=== PATIENT | female | born 1960 | race Caucasian/White ===

== ENCOUNTER 2018-07-31 22:21 | Inpatient (IN) ==
[2018-07-31] MEDS ORDERED: DUONEB 0.5 MG/3 MG ONE (22:34)
[2018-07-31] MEDS ORDERED: NS 1000 ML 1,000 ML ONE (22:34)
[2018-07-31] MEDS ORDERED: NS 1000 ML 1,000 ML IV ONE (22:40)
[2018-07-31 22:46] LABS: ABG BASE EXCESS -2.3 mmol/L (-2.0-2.0); ABG HCO3 25.6 mmol/L (22-26)
[2018-07-31 22:48] LABS: BASOPHILS # (AUTO) 0.1 X10^3/uL (0.0-0.1); BASOPHILS % (AUTO) 0.3 % (0.2-1.0); HEMATOCRIT 41.4 % (42.0-54.0); HEMOGLOBIN 14.1 g/dL (13.5-18.0); LYMPHOCYTES # (AUTO) 1.5 X10^3/uL (1.3-2.9); LYMPHOCYTES % (AUTO) 5.8 % (21.0-51.0); MEAN CORPUSCULAR HEMOGLOBIN 32.9 pg (27.0-34.0); MEAN CORPUSCULAR HGB CONC 34.2 g/dL (33.0-35.0); MEAN CORPUSCULAR VOLUME 96.3 fL (80.0-100.0); MEAN PLATELET VOLUME 6.7 fL (7.4-11.0); MONOCYTES # (AUTO) 0.8 x10^3/uL (0.3-0.8); MONOCYTES % (AUTO) 2.9 % (0.0-13.0); NEUTROPHILS # (AUTO) 24.1 x10^3/uL (2.2-4.8); PLATELET COUNT 317 X10^3/uL (150.0-450.0); WHITE BLOOD COUNT 26.4 X10^3/uL (3.6-10.0)
[2018-07-31 23:00] LABS: ALANINE AMINOTRANSFERASE 36 Units/L (12-78); ALBUMIN 3.5 g/dL (3.4-5.0); ALKALINE PHOSPHATASE 74 Units/L (46-116); ASPARTATE AMINO TRANSFERASE 104 Units/L (15-37); BLOOD UREA NITROGEN 28 mg/dL (7-18); CALCIUM 9.4 mg/dL (8.5-10.1); CARBON DIOXIDE 26.2 mmol/L (21-32); CHLORIDE 95 mmol/L (98-107); COR NA(FOR HYPERGLY) 135 mmol/L (136-145); CREATININE 1.88 mg/dL (0.70-1.30); SODIUM 134 mmol/L (136-145); TOTAL PROTEIN 6.9 g/dL (6.4-8.2); eGFR NON BLACK RACES 39 (>60)
[2018-07-31 23:03] LABS: BAND NEUTROPHILS % 35 % (0-10); PLATELET MORPHOLOGY COMMENT NORMAL (NORMAL)
[2018-07-31] MEDS ORDERED: DUONEB 0.5 MG/3 MG NEB ONE (23:10)
--- NOTE | 2018-07-31 23:18 | RAD ---
Chest single frontal view comparison study is 08/11/2016 and 08/13/2016 Clinical indication: Shortness of breath Findings: When compared to the most recent exam performed earlier 2 years prior, again demonstrated is a pattern of coarse interstitial reticulation with basilar predominance indicative of pulmonary fibrosis. There is mild elevation of the right diaphragm. Interstitial airspace disease is increased and overall volume in the interim especially within the left lower lobe. While this may represent progression of pulmonary fibrosis, superimposed infiltrate affiliated with pneumonia cannot be excluded. This requires direct clinical correlation. The pleural spaces are generally clear. The heart size is normal with accentuation of the main pulmonary artery which may indicate pulmonary artery hypertension. A spinal stimulator wires in place Impression: A background of diffuse interstitial fibrosis with basilar predominance. Superimposed increased of interstitial density in the left lower lobe is observed in the interim, representing either progression of fibrosis or superimposed pneumonia. Clinical correlation is necessary. Reported By:
[2018-07-31] MEDS ORDERED: ROCEPHIN VIAL 1 GRAM IVP ONE (23:26)
[2018-07-31] MEDS ORDERED: SOLU-Medrol 125 MG VIAL IVP ONE (23:26)
--- NOTE | 2018-07-31 23:28 | DR.SOBA ---
HPI Time Seen Time Seen by Provider: 07/31/18 22:54 Primary Care Physician Primary Care Physician: SANDEEP HPI Comment HPI Comment: PATIENT ON HOME O2 AT NIGHT. SHE HAVE HIDTORY OF AFIB, RA AND LUPUS. WORSE SUDDENLY TONIGHT. Complaints Chief Complaint Doctors Comments: PATIENT WITH COPD AND PULMONAY FIBROSIS PRESENTS CYANOTIC WITH SEVERE SOB AND OXYGEN DESATURATION. PATIENT WAS RECENTLY IN THE HOSPITAL FOR SIMILAR PRESENTATION AND HAD PPNEUMONIA AT THAT TIME. DENIES FEVER. HAVE CHEST TIGHTNESS. Chief Complaint:: SUDDEN ONSET OF SHORTNESS OF BREATH, SATS DECREASED. Reviewed Nurses Notes Reviewed: Yes Source History Provided: Patient Mode of Arrival Mode of Arrival: Ambulatory Timing Onset of Chief Complaint: 07/31/18 Context Onset:: At Rest and With Light Exertion PE Risk Factors:: None History of:: COPD Currently on:: Inhaled Bronchodilators Prehospital Care:: Inhaled B2 Modifying Factors Worsens:: Exertion and Lying Flat Improves:: Rest and Sitting Up Associated Signs and Symptoms Associated Signs and Symptoms: Wheeze and Cough If Chest Pain Quality: Pleuritic (TIGHTNESS.) Location: Right Upper Chest, Right Lower Chest, Left Upper Chest and Left Lower Chest If Cough Cough: Productive and Yellow PMH PMH Past Medical History: Yes Past Medical History: Arthritis and COPD Past Medical History Comment: ATRIAL FIBRILLATION HOME OXYGEN @ 2-3L NC @HS LUPUS CHRONIC BACK PAIN, DENGENERATIVE DISC DISEASE ATRIAL FLUTTER EMPHYSEMA RHUEMATOID ARTHRIS Past Surgical History: Yes Surgical History: Hysterectomy, Ortho Surgery and Other Past Surgical History Comment: BACK SURGERIES (5) Family History History of Family Medical Conditions: Yes Family Medical History: [place] and Hypertension Social History Type of Tobacco Use: Cigarettes Alcohol Use: None Do you use any recreational Drugs:: No Lives With: Spouse Lives Where: Home infectious screening In the last 2 months have you had wt loss of >10#?: NO Have you had fever, night sweats or hemotysis?: No Have you traveled outside the country in the last 6 months?: Yes Details about traveling: 2017-Jun Isolation: Standard ROS Review of Systems Constitutional: Diaphoresis, Weakness and Fatigue; negative Chills and Fever Eyes: No Symptoms Reported ENTM: Nose Congestion Respiratoy: Productive Cough, Orthopnea, Short of Breath and Wheezing Cardiovascular: Chest Pain Gastrointestinal/Abdominal: No Symptoms Reported Genitourinary: No Symptoms Reported Neurological: Headache, Weakness and Dizziness Musculoskeletal: Back Pain, Muscle Pain, Hip, Leg, Knee, Ankle and Foot Integumentary: Change in Color (PERIPHERAL CYANOSIS.) and Other (PERIPHERAL CYANOSIS.) Hematologic/Lymphatic: Easy Bleeding and Easy Bruising Endocrine: Excessive Sweating, Flushing and Intolerance to Heat Psychiatric: Anxiety and Depression; negative Other All Other Systems: Reviewed and Negative PE Vital Signs Vitals: Temperature 97.1 F Pulse Rate [Left] 89 Pulse Rate 55 Respiratory Rate 22 Blood Pressure [Left Arm] 91/50 Blood Pressure [Right Arm] 140/76 Blood Pressure 92/60 O2 Sat by Pulse Oximetry 96 General Limitations: No Limitations General Appearance: Alert and In Distress Head Head Exam: Normal Inspection Eyes Eye exam: PERRL and EOMI; negative Scleral Icterus and Conjunctival Injection ENT ENT Exam: Normal External Ear Exam Neck Neck Exam: Trachea Midline; negative Tenderness, Meningismus and Lymphadenopathy Chest Chest Inspection: Symmetric Chest Wall Rise Respiratory Respiratory Exam: Respiratory Distress Respiratory Exam: Bilateral: Wheezing, Bilateral: Rhonchi and Bilateral: D ecreased Breath Sounds, Upper: Wheezing and Upper: Rhonchi and Lower: Wheezing, Lower: Rhonchi and Lower: Decreased Breath Sounds Cardiovascular Cardiovascular Exam: Regular Rate, Normal Rhythm and +S3 Abdominal Exam Abdominal Exam: Normal Bowel Sounds and Soft; negative Tenderness Extremities Extremities Exam: negative Joint Swelling and Calf Tenderness Back Back Exam: Paraspinal Tenderness Neurologic Neurological Exam: Alert, Oriented X3, CN II-XII Intact and Reflexes Normal; negative Motor Sensory Deficit Psychiatric Psychiatric Exam: Anxious MDM Additional Information Obtained Additional Information Obtained From: Old Records and Family Differential Diagnosis Differential Diagnosis: Bronchitis, CHF, COPD, Dysrhythmia, Hyponatremia, Mycardial Infarction, Pneumonia, Pneumothorax, Pulmonary embolism, Respiratory Failure, Sinusitis and URI COURSE Treatment Treatment: SEE ORDERS. NEB TREAMENT WITH IV SOLUMEDROL AND BI-PAP IN ED. Reevaluation 1st: Improved Education/Counseling Education/Counseling: Patient and Family Educated On: Diagnosis ROR Labs Reviewed Laboratory Results Reviewed?: Yes Result Diagrams: 07/31/18 22:41 07/31/18 22:41 Laboratory: 08/01/18 00:28 Sputum - Expectorated Sputum - Final WBC 26.4 X10^3/uL (3.6-10.0) H 07/31/18 22:41 RBC 4.30 X10^6/uL (4.7-6.0) L 07/31/18 22:41 Hgb 14.1 g/dL (13.5-18.0) 07/31/18 22:41 Hct 41.4 % (42.0-54.0) L 07/31/18 22:41 MCV 96.3 fL (80.0-100.0) 07/31/18 22:41 MCH 32.9 pg (27.0-34.0) 07/31/18 22:41 MCHC 34.2 g/dL (33.0-35.0) 07/31/18 22:41 RDW 15.0 % (11.6-16.5) 07/31/18 22:41 Plt Count 317 X10^3/uL (150.0-450.0) 07/31/18 22:41 Plt Count Comment Adequate (ADEQUATE) 07/31/18 22:41 MPV 6.7 fL (7.4-11.0) L 07/31/18 22:41 Neut % (Auto) 91.0 % (42.0-75.0) H 07/31/18 22:41 Lymph % (Auto) 5.8 % (21.0-51.0) L 07/31/18 22:41 [place] % (Auto) 2.9 % (0.0-13.0) 07/31/18 22:41 Eos % (Auto) 0.0 % (0.9-2.9) L 07/31/18 22:41 Baso % (Auto) 0.3 % (0.2-1.0) 07/31/18 22:41 Neut # (Auto) 24.1 x10^3/uL (2.2-4.8) H 07/31/18 22:41 Lymph # (Auto) 1.5 X10^3/uL (1.3-2.9) 07/31/18 22:41 Smith # (Auto) 0.8 x10^3/uL (0.3-0.8) 07/31/18 22:41 Eos # (Auto) 0.0 x10^3/uL (0.0-0.2) 07/31/18 22:41 Baso # (Auto) 0.1 X10^3/uL (0.0-0.1) 07/31/18 22:41 Absolute Nucleated RBC 0.0 /100WBC 07/31/18 22:41 Total Counted 100 07/31/18 22:41 Neutrophils % (Manual) 57 % (39-76) 07/31/18 22:41 Band Neutrophils % 35 % (0-10) H 07/31/18 22:41 Lymphocytes % (Manual) 5 % (13-43) L 07/31/18 22:41 Monocytes % (Manual) 3 % (4-9) L 07/31/18 22:41 Plt Morphology Comment Normal (NORMAL) 07/31/18 22:41 RBC Morphology Normal (NORMAL) 07/31/18 22:41 Sample Site Lbra 08/01/18 00:25 ABG pH 7.240 (7.35-7.45) L 08/01/18 00:25 ABG pCO2 61.0 mmHg (35.0-45.0) H* 08/01/18 00:25 ABG pO2 61.0 mmHg (80.0-100.0) L 08/01/18 00:25 ABG HCO3 26.1 mmol/L (22-26) H 08/01/18 00:25 ABG O2 Saturation 86.0 % (90-100) L 08/01/18 00:25 ABG Base Excess -2.3 mmol/L (-2.0-2.0) L 08/01/18 00:25 Surinder Test Na 08/01/18 00:25 A-a Gradient 219.0 mmHg 08/01/18 00:25 FiO2 50.0 08/01/18 00:25 Blood Gas Comments Lisa abg well-mtf 08/01/18 00:25 Sodium 134 mmol/L (136-145) L 07/31/18 22:41 Corrected Sodium 135 mmol/L (136-145) L 07/31/18 22:41 Potassium 4.0 mmol/L (3.5-5.1) 07/31/18 22:41 Chloride 95 mmol/L (98-107) L 07/31/18 22:41 Carbon Dioxide 26.2 mmol/L (21-32) 07/31/18 22:41 BUN 28 mg/dL (7-18) H 07/31/18 22:41 Creatinine 1.88 mg/dL (0.70-1.30) H 07/31/18 22:41 Est GFR (MDRD) Af Amer 48 (>60) L 07/31/18 22:41 Est GFR (MDRD) Non-Af 39 (>60) L 07/31/18 22:41 Glucose 129 mg/dL (65-99) H 07/31/18 22:41 Lactic Acid 1.0 mmol/L (0.4-2.0) 07/31/18 22:41 Calcium 9.4 mg/dL (8.5-10.1) 07/31/18 22:41 Corrected Calcium TNP 07/31/18 22:41 Total Bilirubin 0.50 mg/dL (0.2-1.0) 07/31/18 22:41 AST 104 Units/L (15-37) H 07/31/18 22:41 ALT 36 Units/L (12-78) 07/31/18 22:41 Alkaline Phosphatase 74 Units/L (46-116) 07/31/18 22:41 Creatine Kinase 1721 Units/L (39-308) H 07/31/18 22:41 CK-MB (CK-2) 25.8 ng/mL (0-4.0) H* 07/31/18 22:41 CK/CKMB % Calc 1.5 % (<4) 07/31/18 22:41 Troponin I 0.49 ng/mL (0-1.5) 07/31/18 22:41 C-Reactive Protein 167.10 mg/L (0-3.0) H 07/31/18 22:41 Total Protein 6.9 g/dL (6.4-8.2) 07/31/18 22:41 Albumin 3.5 g/dL (3.4-5.0) 07/31/18 22:41 Globulin 3.4 g/dL (2.5-4.5) 07/31/18 22:41 Albumin/Globulin Ratio 1.0 Ratio (1.1-2.1) L 07/31/18 22:41 XRAY XRAY Interpreted by: Radiologist XRAY Findings: REPORT DISCUSS WITH PATIENT. EKG Rate: 95 [place]: Normal Rhythm: NSR Block: None Hypertrophy: None ST: Normal
[2018-07-31 23:42] LABS: TROPONIN I 0.49 ng/mL (0-1.5)
[2018-07-31 23:43] LABS: CREATINE KINASE MB 25.8 ng/mL (0-4.0)
[2018-07-31 23:44] LABS: CKMB % 1.5 % (<4)
[2018-07-31] MEDS ORDERED: SOLU-Medrol 125 MG VIAL ONE (23:53)
[2018-07-31] MEDS ORDERED: ROCEPHIN VIAL 1 GRAM ONE (23:53)
[2018-08-01 00:38] LABS: ABG BASE EXCESS -2.3 mmol/L (-2.0-2.0); ABG HCO3 26.1 mmol/L (22-26)
[2018-08-01 02:34] LABS: TROPONIN I 0.39 ng/mL (0-1.5)
[2018-08-01 02:36] LABS: CKMB % 1.7 % (<4); CREATINE KINASE MB 21.4 ng/mL (0-4.0)
[2018-08-01 03:33] LABS: BILIRUBIN,URINE NEGATIVE (NEGATIVE); BLOOD/HEMOGLOBIN,URINE 1+ (NEGATIVE); GLUCOSE, URINE NEGATIVE (NEGATIVE); KETONES,URINE NEGATIVE (NEGATIVE); LEUKOCYTE ESTERASE ,URINE NEGATIVE (NEGATIVE); NITRITES,URINE NEGATIVE (NEGATIVE); PROTEIN,URINE 2+ (NEGATIVE); UROBILINOGEN,URINE NORMAL (NORMAL)
[2018-08-01 03:40] LABS: AMORPHOUS SEDIMENT,UR 2+ /HPF (NEGATIVE); APPEARANCE,URINE CLEAR (CLEAR); BACTERIA,URINE TRACE /HPF (NEGATIVE); CALCIUM OXALATE CRYSTALS,UR FEW /HPF (NEGATIVE); COLOR,URINE DARK YELLOW (YELLOW); HYALINE CASTS, URINE MANY /LPF (NEGATIVE); SQUAMOUS EPITHELIAL CELL,UR FEW /HPF (NEGATIVE)
[2018-08-01 03:44] VITALS: BMI 26.7
[2018-08-01] MEDS: NS 1000 ML 1,000 ML IV SCH ×2 (04:00→18:06)
[2018-08-01] MEDS ORDERED: NS 1000 ML 1,000 ML ONE (04:04)
[2018-08-01 05:55] LABS: BASOPHILS % (AUTO) 0.1 % (0.2-1.0); HEMATOCRIT 38.6 % (36.0-47.0); HEMOGLOBIN 13.1 g/dL (12.0-16.0); LYMPHOCYTES # (AUTO) 0.3 X10^3/uL (1.3-2.9); LYMPHOCYTES % (AUTO) 1.6 % (21.0-51.0); MEAN CORPUSCULAR HEMOGLOBIN 32.8 pg (27.0-34.0); MEAN CORPUSCULAR VOLUME 96.5 fL (80.0-100.0); MEAN PLATELET VOLUME 6.8 fL (7.4-11.0); MONOCYTES # (AUTO) 0.1 x10^3/uL (0.3-0.8); MONOCYTES % (AUTO) 0.3 % (0.0-13.0); NEUTROPHILS # (AUTO) 17.3 x10^3/uL (2.2-4.8); PLATELET COUNT 281 X10^3/uL (150.0-450.0); RED CELL DISTRIBUTION WIDTH 14.9 % (11.6-16.5)
[2018-08-01 05:56] LABS: ABG BASE EXCESS -1.5 mmol/L (-2.0-2.0)
[2018-08-01 06:08] LABS: ALANINE AMINOTRANSFERASE 32 Units/L (12-78); ALBUMIN 2.9 g/dL (3.4-5.0); ALKALINE PHOSPHATASE 63 Units/L (46-116); ASPARTATE AMINO TRANSFERASE 80 Units/L (15-37); BAND NEUTROPHILS % 37 % (0-10); BLOOD UREA NITROGEN 24 mg/dL (7-18); CALCIUM 8.7 mg/dL (8.5-10.1); CARBON DIOXIDE 24.9 mmol/L (21-32); CHLORIDE 101 mmol/L (98-107); CHOL/HDL RATIO 4.3 (0.0-5.0); CHOLESTEROL 150 mg/dL (0-200); COR CA(FOR HYPOALB) 9.6 mg/dL (8.5-10.1); COR NA(FOR HYPERGLY) 137 mmol/L (136-145); CREATININE 1.13 mg/dL (0.55-1.02); HDL CHOLESTEROL 35 mg/dL (40-60); PLATELET MORPHOLOGY COMMENT NORMAL (NORMAL); SODIUM 136 mmol/L (136-145); TOTAL PROTEIN 6.2 g/dL (6.4-8.2); TRIGLYCERIDES 125 mg/dL (0-150); WHITE BLOOD COUNT 17.6 X10^3/uL (3.6-10.0); eGFR NON BLACK RACES 53 (>60)
[2018-08-01 06:50] LABS: CKMB % 1.8 % (<4); TROPONIN I 0.33 ng/mL (0-1.5)
[2018-08-01 06:53] LABS: CREATINE KINASE MB 16.3 ng/mL (0-4.0)
--- NOTE | 2018-08-01 08:19 | DR.H&P ---
H&P - History & Physical for Day of: H&P Date: 08/01/18 - Chief Complaint Chief Complaint: SOB, COUGH, DECREASED OXYGEN SATURATIONS - History of Present Illness History of Present Illness: IS A 57 YEAR OLD PATIENT OF OURS WHO PRESENTED TO THE EMERGENCY ROOM WITH COMPLAINTS OF SHORTNESS OF BREATH AND DECREASED OXYGEN SATURATIONS. SHE REPORTS THAT SYMPTOMS STARTED SUDDENLY LAST NIGHT. SHE REPORTS A MEDICAL HISTORY OF COPD, PULMONARY FIBROSIS, A-FIB, RA, AND LUPUS. SHE REPORTS RECENTLY BEING HOSPITALIZED FOR SIMILAR PRESENTATION AND PNEUMONIA. SHE UTILIZES OXYGEN AT HOME AND INHALED BRONCHODILATORS. SHE STATES THAT LYING FLAT AND EXERTION MAKES SYMPTOMS WORSE. SHE ALSO REPORTS CHEST TIGHTNESS. ON EXAMINATION, SHE IS NOTED WITH A PRODUCTIVE COUGH AND SCATTERED WHEEZING. ON ARRIVAL, VITALS WERE 97.1-97-22-85%NC-92/60. LABS WERE OBTAINED. ABNORMAL LAB VALUES INCLUDE THE FOLLOWING: WBC 26.4, RBC 4.30, HCT 41.4, SODIUM 134, CHLORIDE 95, BUN 28, CREATININE 1.88, GLUCOSE 129, AST 104, CREATINE KINASE 1721, CK-MB 25.8, CRP 167.10. ABG REVEALED PH 7.260, PC02 57.0, P02 44.0, HC03 25.6, 02 SATURATION 72.0, BASE EXCESS -2.3. URINALYSIS REVEALED: WBC 0-2, RBC 5- 10, BACTERIA TRACE, LEUKOCYTES NEGATIVE. SPUTUM AND BLOOD CULTURES PENDING. CHEST XRAY OBTAINED AND REVEALED: A background of diffuse interstitial fibrosis with basilar predominance. Superimposed increased of interstitial density in the left lower lobe is observed in the interim, representing either progression of fibrosis or superimposed pneumonia. Clinical correlation is necessary. EKG REVEALED: SINUS RHYTHM WITH HR 95. SHE WAS GIVEN A NORMAL SALINE BOLUS, DUONEBS X 1, ROCEPHIN 1GM IV X 1, AND SOLU-MEDROL 125MG IV X 1. SHE WAS ADMITTED FOR FURTHER EVALUATION AND TREATMENT OF RESPIRATORY FAILURE, COPD, PNEUMONIA, AND ABNORMAL CARDIAC LEVELS. SHE WAS STARTED ON NORMAL SALINE AT 75ML/HR, FORTAZ IV, LEVAQUIN IV, RESPIRATORY TREATMENTS, AND SUPPLEMENTAL OXYGEN. WE PLAN TO FOLLOW UP WITH AM LABS AND CONTINUE TO MONITOR. - Past Medical History Past Medical History: COPD, Arthritis Additional Medical History: A-FIB, RA, LUPUS, PULMONARY FIBROSIS - Past Surgical History Surgical History: Hysterectomy, Ortho Surgery, Other - Family History Family Medical History: [place], Hypertension - Social History Does patient currently use any type of tobacco product: Yes Have you used tobacco products in the last 12 months: Yes Type of Tobacco Use: Cigarettes How many years tobacco product used: 35 Packs per day or dips/chews per day: 1.5 Does any household member use tobacco: No Alcohol Use: None Drug Use: Prescription Drugs - Medications Home Medications: GRALISE Allergy (Uncoded 07/31/18 23:20) CONTINUE taking the following medications apixaban [Eliquis] 5 mg PO BID 07/31/18 [History] cetirizine 10 mg PO PRN PRN 07/31/18 [History] diltiazem HCl 120 mg PO DAILY 07/31/18 [History] tizanidine 4 mg PO BID 07/31/18 [History] - Review of Systems Constitutional: Weakness Eyes: No Symptoms Reported ENT: No Symptoms Reported Respiratory: See HPI, Cough, Shortness of Breath, SOB with Excertion, Sputum, Wheezing Cardiovascular: No Symptoms Reported Gastrointestinal: No Symptoms Reported Genitourinary: No Symptoms Reported Musculoskeletal: No Symptoms Reported Skin: No Symptoms Reported Neurological: Weakness - Physical Exam Vital Signs: Temperature 98.2 F Pulse Rate [Left] 91 Pulse Rate 96 Respiratory Rate 22 Blood Pressure [Left Arm] 118/64 Blood Pressure [Right Arm] 140/76 Blood Pressure 107/56 O2 Sat by Pulse Oximetry 94 Oriented: Normal Eyes: Normal Ear: Normal Nose: Normal Throat: Normal Respiratory: Diminished Throughout, Wheezes Throughout Cardiovascular: Normal. negative: S3, S4, Murmur, Edema : Normal Auscultation: Bowel Sounds: Normal Palpation: Normal Tenderness: Normal Skin: Normal Musculoskeletal: Normal Psychiatric: Normal Mood Description: Calm Affect: Normal Speech Pattern: Clear - Assessment/Plan (1) Pneumonia Qualifiers: Pneumonia type: due to unspecified organism Laterality: left Lung location: lower lobe of lung Qualified Code(s): J18.1 - Lobar pneumonia, unspecified organism Status: Acute Plan: ADMIT, PNEUMONIA PROTOCOL, IV FORTAZ, IV LEVAQUIN, RESPIRATORY TREATMENTS, SUPPLEMENTAL OXYGEN, CONTINUE TO MONITOR. (2) COPD (chronic obstructive pulmonary disease) Qualifiers: COPD type: COPD with acute lower respiratory infection Qualified Code(s): J44.0 - Chronic obstructive pulmonary disease with acute lower respiratory infection Status: Acute (3) Respiratory failure with hypoxia and hypercapnia Qualifiers: Chronicity: acute on chronic Qualified Code(s): J96.21 - Acute and chronic respiratory failure with hypoxia; J96.22 - Acute and chronic respiratory failure with hypercapnia Status: Acute - Allergies Allergies/Adverse Reactions: Allergies Allergy/AdvReac Type Severity Reaction Status Date / Time GRALISE Allergy Uncoded 07/31/18 23:20
[2018-08-01] MEDS: LEVAQUIN PREMIX IV 500 MG 500 MG/100 ML BAG IV SCH (08:49)
[2018-08-01] MEDS: FORTAZ or TAZICEF VIAL INJ IVP SCH ×2 (08:49→20:37)
[2018-08-01] MEDS: FOLIC ACID TAB 1 MG PO SCH (08:49)
[2018-08-01] MEDS: ZyrTEC TAB 10 MG PO PRN (08:49)
[2018-08-01] MEDS: ELIQUIS PO SCH ×2 (08:49→20:37)
[2018-08-01] MEDS: CARDIZEM SR 120 MG PO SCH (08:49)
[2018-08-01] MEDS: ZANAFLEX PO SCH ×2 (08:49→20:37)
[2018-08-01] MEDS ORDERED: MILK OF MAGNESIA PO SCH (09:00)
[2018-08-01] MEDS ORDERED: ROCEPHIN VIAL 1 GRAM IVP SCH (09:00)
[2018-08-01] MEDS ORDERED: PATIENT'S HOME MEDICATION (Budesonide-Formoterol 2 PUFF) IN SCH (09:00)
[2018-08-01] MEDS: PULMICORT NEB TX 0.5 MG NEB SCH ×2 (09:03→20:37)
[2018-08-01] MEDS: DUONEB 0.5 MG/3 MG NEB SCH ×4 (09:03→20:37)
[2018-08-01 10:15] LABS: ABG BASE EXCESS -0.5 mmol/L (-2.0-2.0); ABG HCO3 27.3 mmol/L (22-26)
[2018-08-01] MEDS ORDERED: OXYCODONE ACETAMINOPHEN PO PRN (10:58)
[2018-08-01] MEDS ORDERED: DURAGESIC 75 mcg/HR PATCH TD SCH (11:00)
[2018-08-01 11:39] LABS: CKMB % 1.8 % (<4); TROPONIN I 0.25 ng/mL (0-1.5)
[2018-08-01 11:47] LABS: CREATINE KINASE MB 10.8 ng/mL (0-4.0)
[2018-08-01] MEDS: PERCOCET TAB 5/325 MG PO PRN (12:20)
[2018-08-01] MEDS: ROXICODONE TAB 5 MG PO PRN (12:20)
[2018-08-01 15:29] LABS: ABG BASE EXCESS -0.8 mmol/L (-2.0-2.0); ABG HCO3 27.1 mmol/L (22-26)
[2018-08-01] MEDS: ELAVIL PO SCH (20:37)
[2018-08-01] MEDS: VALIUM PO SCH (20:37)
[2018-08-01] MEDS ORDERED: COLACE CAP 100 MG PO SCH (21:00)
[2018-08-01] MEDS: ROBITUSSIN DM PO PRN (22:24)
[2018-08-01] MEDS: TUSSIONEX PENNKINETIC SUSP PO PRN (22:25)
[2018-08-02] MEDS: NS 1000 ML 1,000 ML IV SCH ×2 (05:16→19:51)
[2018-08-02] MEDS: PERCOCET TAB 5/325 MG PO PRN ×3 (05:39→20:50)
[2018-08-02] MEDS: ROXICODONE TAB 5 MG PO PRN ×3 (05:40→20:52)
[2018-08-02] MEDS: ROBITUSSIN DM PO PRN ×2 (05:41→20:48)
[2018-08-02 06:11] LABS: BASOPHILS % (AUTO) 0.2 % (0.2-1.0); HEMATOCRIT 35.4 % (36.0-47.0); HEMOGLOBIN 11.9 g/dL (12.0-16.0); LYMPHOCYTES # (AUTO) 0.6 X10^3/uL (1.3-2.9); LYMPHOCYTES % (AUTO) 3.3 % (21.0-51.0); MEAN CORPUSCULAR HEMOGLOBIN 32.8 pg (27.0-34.0); MEAN CORPUSCULAR HGB CONC 33.7 g/dL (33.0-35.0); MEAN CORPUSCULAR VOLUME 97.3 fL (80.0-100.0); MEAN PLATELET VOLUME 6.8 fL (7.4-11.0); MONOCYTES # (AUTO) 0.5 x10^3/uL (0.3-0.8); MONOCYTES % (AUTO) 2.8 % (0.0-13.0); NEUTROPHILS % (AUTO) 93.7 % (42.0-75.0); PLATELET COUNT 272 X10^3/uL (150.0-450.0); RED BLOOD COUNT 3.64 X10^6/uL (3.5-5.4); RED CELL DISTRIBUTION WIDTH 14.9 % (11.6-16.5); WHITE BLOOD COUNT 17.1 X10^3/uL (3.6-10.0)
[2018-08-02 06:19] LABS: ALANINE AMINOTRANSFERASE 29 Units/L (12-78); ALBUMIN 2.9 g/dL (3.4-5.0); ALKALINE PHOSPHATASE 69 Units/L (46-116); ASPARTATE AMINO TRANSFERASE 43 Units/L (15-37); BLOOD UREA NITROGEN 16 mg/dL (7-18); CALCIUM 9.1 mg/dL (8.5-10.1); CARBON DIOXIDE 28.1 mmol/L (21-32); CHLORIDE 104 mmol/L (98-107); COR NA(FOR HYPERGLY) 139 mmol/L (136-145); SODIUM 139 mmol/L (136-145); TOTAL PROTEIN 6.1 g/dL (6.4-8.2); eGFR NON BLACK RACES > 60 (>60)
--- NOTE | 2018-08-02 06:43 | RAD ---
HISTORY: Shortness of breath Study: Chest AP portable Comparison: 07/31/2018 Findings: The patient is rotated to the left. The heart is within normal limits in size. The wander are normal. Diffuse chronic appearing interstitial lung disease is unchanged in degree or distribution from the prior examination. No acute infiltrates or pleural effusions are identified. The bony thorax is unremarkable. IMPRESSION: No change diffuse interstitial lung disease when compared with the prior examination Reported By:
[2018-08-02 06:49] LABS: BAND NEUTROPHILS % 4 % (0-10); PLATELET MORPHOLOGY COMMENT NORMAL (NORMAL)
[2018-08-02] MEDS: ZyrTEC TAB 10 MG PO PRN (08:44)
[2018-08-02] MEDS: ELIQUIS PO SCH ×2 (08:44→20:49)
[2018-08-02] MEDS: CARDIZEM SR 120 MG PO SCH (08:44)
[2018-08-02] MEDS: FOLIC ACID TAB 1 MG PO SCH (08:44)
[2018-08-02] MEDS: ZANAFLEX PO SCH ×2 (08:44→20:49)
[2018-08-02] MEDS: FORTAZ or TAZICEF VIAL INJ IVP SCH ×3 (08:47→21:05)
[2018-08-02] MEDS: LEVAQUIN PREMIX IV 500 MG 500 MG/100 ML BAG IV SCH (08:47)
[2018-08-02] MEDS: TUSSIONEX PENNKINETIC SUSP PO PRN ×2 (08:47→20:47)
[2018-08-02] MEDS: PULMICORT NEB TX 0.5 MG NEB SCH ×2 (09:00→22:03)
[2018-08-02] MEDS: DUONEB 0.5 MG/3 MG NEB SCH ×4 (09:00→22:03)
[2018-08-02 09:16] LABS: ABG HCO3 29.6 mmol/L (22-26)
[2018-08-02] MEDS ORDERED: SOLU-Medrol 125 MG VIAL IVP ONE (09:57)
[2018-08-02] MEDS ORDERED: DECADRON JET NEB (RESP USE) NEB SCH (10:00)
[2018-08-02] MEDS ORDERED: SOLU-Medrol 125 MG VIAL ONE (12:33)
[2018-08-02] MEDS: MUCOMYST 20% 200 MG/ML NEB SCH ×4 (12:45→22:03)
[2018-08-02] MEDS: DIFLUCAN 200 MG IV PREMIX* 200 MG/100 ML BAG IV SCH (12:48)
[2018-08-02] MEDS: NYSTATIN SUSP MT SCH ×4 (12:48→20:49)
[2018-08-02] MEDS: SOLU-Medrol 40 MG VIAL IVP SCH ×3 (13:05→21:05)
[2018-08-02] MEDS ORDERED: MILK OF MAGNESIA PO PRN (19:38)
--- NOTE | 2018-08-02 20:19 | PCM.PROG ---
Progress Note - Progress Note for Day of Date of Exam: 08/02/18 - Subjective Subjective: WAS ADMITTED FOR PNEUMONIA, COPD EXACERBATION, AND RESPIRATORY FAILURE WITH HYPOXIA AND HYPERCAPNIA. TODAY, SHE LYING IN BED ON MORNING ROUNDS. SHE REPORTS INCREASED SHORTNESS OF BREATH. SHE IS IN OBVIOUS RESPIRATORY DISTRESS WITH INCREASED USE OF ABDOMINAL MUSCLES. SHE IS MORE DROWSY THAN USUAL. ON AUSCULTATION, SHE IS NOTED WITH RHONCHI AND RALES. SHE IS TACHYCARDIC WITH HR NOTED TO BE 119. SINUS TACHYCARDIA NOTED ON MONITOR. HER VITALS UPON ROUNDS ARE 97.5-19-26-85% ON HEATED HIGH FLOW OXYGEN-148/81. LABS WERE OBTAINED. ABNORMAL LAB VALUES INCLUDE THE FOLLOWING: WBC 17.1, HGB 11.9, HCT 35.4, GLUCOSE 118, AST 43, TOTAL PROTEIN 6.1, ALBUMIN 2.9. AN ABG WAS OBTAINED THIS MORNING AND REVEALED: PH 7.260, PC02 66.0, P02 78.0, HC03 29.6, 02 SATURATION 93.0, BASE EXCESS 1.0. SPUTUM CULTURE REPORTS GROWTH OF YEAST. TODAYS CHEST XRAY REVEALED: No change diffuse interstitial lung disease when compared with the prior examination. TODAY, WE WILL ADMINISTER ONE DOSE OF SOLU-MEDROL 125MG IV X 1, THEN SOLU-MEDROL 80MG IV Q4H. WE WILL ADD MUCOMYST AND DECADRON TO NEB TREATMENTS. WE WILL ALSO START DIFLUCAN 200MG IV DAILY AND NYSTATIN SWISH AND SWALLOW QID. WE WILL START HER ON THE BIPAP. OTHERWISE, WE PLAN TO FOLLOW UP WITH AM LABS AND CONTINUE TO MONITOR. - Past Medical Family Social History Past Med/Fam/Surg Hx: No changes since H&P Allergies: Allergies GRALISE Allergy (Uncoded 07/31/18 23:20) - Review of Systems ROS: No change since H&P - Vital Signs and I&O's Vital Signs: Temperature 98.1 F Pulse Rate [Left] 77 Pulse Rate 86 Respiratory Rate 10 Blood Pressure [Left Arm] 109/61 Blood Pressure [Right Arm] 140/76 Blood Pressure 107/56 O2 Sat by Pulse Oximetry 96 Intake and Output: Intake & Output 07/31/18 08/01/18 08/02/18 08/03/18 11:59 11:59 11:59 11:59 Intake Total 1225 / 1225 4031 / 4031 1669 / 1669 Output Total 500 / 500 1400 / 1400 500 / 500 Balance 725 / 725 2631 / 2631 1169 / 1169 - Physical Exam Oriented: Normal Eyes: Normal Ear: Normal Nose: Normal Throat: Normal Respiratory: Right, Left, Generalized, Rales, Rhonchi Cardiovascular: Normal. negative: S3, S4, Murmur, Edema : Normal Auscultation: Bowel Sounds: Normal Palpation: Normal Tenderness: Normal Skin: Normal Musculoskeletal: Normal Psychiatric: Normal Mood Description: Calm Affect: Normal Speech Pattern: Clear, Appropriate - Laboratory and Diagnostics Result Diagrams: 08/02/18 05:16 08/02/18 05:16 Labs: 08/01/18 00:28 Sputum - Expectorated Sputum Sputum Culture - Preliminary 08/01/18 00:28 Sputum - Expectorated Sputum - Final 07/31/18 23:48 Blood Blood Culture - Preliminary Laboratory WBC 17.1 X10^3/uL (3.6-10.0) H 08/02/18 05:16 RBC 3.64 X10^6/uL (3.5-5.4) 08/02/18 05:16 Hgb 11.9 g/dL (12.0-16.0) L 08/02/18 05:16 Hct 35.4 % (36.0-47.0) L 08/02/18 05:16 MCV 97.3 fL (80.0-100.0) 08/02/18 05:16 MCH 32.8 pg (27.0-34.0) 08/02/18 05:16 MCHC 33.7 g/dL (33.0-35.0) 08/02/18 05:16 RDW 14.9 % (11.6-16.5) 08/02/18 05:16 Plt Count 272 X10^3/uL (150.0-450.0) 08/02/18 05:16 Plt Count Comment Adequate (ADEQUATE) 08/02/18 05:16 MPV 6.8 fL (7.4-11.0) L 08/02/18 05:16 Neut % (Auto) 93.7 % (42.0-75.0) H 08/02/18 05:16 Lymph % (Auto) 3.3 % (21.0-51.0) L 08/02/18 05:16 [place] % (Auto) 2.8 % (0.0-13.0) 08/02/18 05:16 Eos % (Auto) 0.0 % (0.9-2.9) L 08/02/18 05:16 Baso % (Auto) 0.2 % (0.2-1.0) 08/02/18 05:16 Neut # (Auto) 16.0 x10^3/uL (2.2-4.8) H 08/02/18 05:16 Lymph # (Auto) 0.6 X10^3/uL (1.3-2.9) L 08/02/18 05:16 [place] # (Auto) 0.5 x10^3/uL (0.3-0.8) 08/02/18 05:16 Eos # (Auto) 0.0 x10^3/uL (0.0-0.2) 08/02/18 05:16 Baso # (Auto) 0.0 X10^3/uL (0.0-0.1) 08/02/18 05:16 Absolute Nucleated RBC 0.0 /100WBC 08/02/18 05:16 Total Counted 100 08/02/18 05:16 Neutrophils % (Manual) 89 % (39-76) H 08/02/18 05:16 Band Neutrophils % 4 % (0-10) 08/02/18 05:16 Lymphocytes % (Manual) 5 % (13-43) L 08/02/18 05:16 Monocytes % (Manual) 2 % (4-9) L 08/02/18 05:16 Plt Morphology Comment Normal (NORMAL) 08/02/18 05:16 RBC Morphology Normal (NORMAL) 08/02/18 05:16 Sample Site Lbr 08/02/18 09:11 ABG pH 7.260 (7.35-7.45) L 08/02/18 09:11 ABG pCO2 66.0 mmHg (35.0-45.0) H* 08/02/18 09:11 ABG pO2 78.0 mmHg (80.0-100.0) L 08/02/18 09:11 ABG HCO3 29.6 mmol/L (22-26) H 08/02/18 09:11 ABG O2 Saturation 93.0 % (90-100) 08/02/18 09:11 ABG Base Excess 1.0 mmol/L (-2.0-2.0) 08/02/18 09:11 Surinder Test Na 08/02/18 09:11 A-a Gradient 182.0 mmHg 08/02/18 09:11 FiO2 48.0 08/02/18 09:11 Blood Gas Comments Lisa well gmb 08/02/18 09:11 Sodium 139 mmol/L (136-145) 08/02/18 05:16 Corrected Sodium 139 mmol/L (136-145) 08/02/18 05:16 Potassium 4.4 mmol/L (3.5-5.1) 08/02/18 05:16 Chloride 104 mmol/L (98-107) 08/02/18 05:16 Carbon Dioxide 28.1 mmol/L (21-32) 08/02/18 05:16 BUN 16 mg/dL (7-18) 08/02/18 05:16 Creatinine 0.70 mg/dL (0.55-1.02) 08/02/18 05:16 Est GFR (MDRD) Af Amer > 60 (>60) 08/02/18 05:16 Est GFR (MDRD) Non-Af > 60 (>60) 08/02/18 05:16 Glucose 118 mg/dL (65-99) H 08/02/18 05:16 Lactic Acid 1.0 mmol/L (0.4-2.0) 07/31/18 22:41 Calcium 9.1 mg/dL (8.5-10.1) 08/02/18 05:16 Corrected Calcium 10.0 mg/dL (8.5-10.1) 08/02/18 05:16 Total Bilirubin 0.20 mg/dL (0.2-1.0) 08/02/18 05:16 AST 43 Units/L (15-37) H 08/02/18 05:16 ALT 29 Units/L (12-78) 08/02/18 05:16 Alkaline Phosphatase 69 Units/L (46-116) 08/02/18 05:16 Creatine Kinase 602 Units/L (26-192) H 08/01/18 10:52 CK-MB (CK-2) 10.8 ng/mL (0-4.0) H* 08/01/18 10:52 CK/CKMB % Calc 1.8 % (<4) 08/01/18 10:52 Troponin I 0.25 ng/mL (0-1.5) 08/01/18 10:52 C-Reactive Protein 174.80 mg/L (0-3.0) H 08/01/18 05:14 Total Protein 6.1 g/dL (6.4-8.2) L 08/02/18 05:16 Albumin 2.9 g/dL (3.4-5.0) L 08/02/18 05:16 Globulin 3.2 g/dL (2.5-4.5) 08/02/18 05:16 Albumin/Globulin Ratio 0.9 Ratio (1.1-2.1) L 08/02/18 05:16 Triglycerides 125 mg/dL (0-150) 08/01/18 05:14 Cholesterol 150 mg/dL (0-200) 08/01/18 05:14 LDL Cholesterol, Calc 90 mg/dL (0-100) 08/01/18 05:14 HDL Cholesterol 35 mg/dL (40-60) L 08/01/18 05:14 Cholesterol/HDL Ratio 4.3 (0.0-5.0) 08/01/18 05:14 Specimen Type Clean catch urine 08/01/18 03:26 Urine Color Dark yellow (YELLOW) 08/01/18 03:26 Urine Appearance Clear (CLEAR) 08/01/18 03:26 Urine pH 5.0 (5.0 - 8.0) 08/01/18 03:26 Ur Specific [place] 1.015 (1.000-1.030) 08/01/18 03:26 Urine Protein 2+ (NEGATIVE) 08/01/18 03:26 Urine Glucose (UA) Negative (NEGATIVE) 08/01/18 03:26 Urine Ketones Negative (NEGATIVE) 08/01/18 03:26 Urine Occult Blood 1+ (NEGATIVE) 08/01/18 03:26 Urine Nitrite Negative (NEGATIVE) 08/01/18 03:26 Urine Bilirubin Negative (NEGATIVE) 08/01/18 03:26 Urine Urobilinogen Normal (NORMAL) 08/01/18 03:26 Ur Leukocyte Esterase Negative (NEGATIVE) 08/01/18 03:26 Urine RBC 5-10 /HPF (NONE SEEN) 08/01/18 03:26 Urine WBC 0-2 /HPF (NONE SEEN) 08/01/18 03:26 Ur Squamous Epith Cells Few /HPF (NEGATIVE) 08/01/18 03:26 Calcium Oxalate Crystal Few /HPF (NEGATIVE) 08/01/18 03:26 Amorphous Sediment 2+ /HPF (NEGATIVE) 08/01/18 03:26 Urine Bacteria Trace /HPF (NEGATIVE) 08/01/18 03:26 Hyaline Casts Many /LPF (NEGATIVE) 08/01/18 03:26 Ur Culture Indicated? No/not indicated 08/01/18 03:26 - Plan (1) Pneumonia Status: Acute Qualifiers: Pneumonia type: due to unspecified organism Laterality: left Lung location: lower lobe of lung Qualified Code(s): J18.1 - Lobar pneumonia, unspecified organism Plan: ADMIT, PNEUMONIA PROTOCOL, IV FORTAZ, IV LEVAQUIN, RESPIRATORY TREATMENTS, MUCOMYST AND DECADRON IN NEB [place], BIPAP, SUPPLEMENTAL OXYGEN, CONTINUE TO MONITOR. (2) COPD (chronic obstructive pulmonary disease) Status: Acute Qualifiers: COPD type: COPD with acute lower respiratory infection Qualified Code(s): J44.0 - Chronic obstructive pulmonary disease with acute lower respiratory infection Plan: BIPAP, NEB [place], SUPPLEMENTAL OXYGEN, CONTINUE TO MONITOR (3) Respiratory failure with hypoxia and hypercapnia Status: Acute Qualifiers: Chronicity: acute on chronic Qualified Code(s): J96.21 - Acute and chronic respiratory failure with hypoxia; J96.22 - Acute and chronic respiratory failure with hypercapnia (4) Infection due to yeast Status: Acute Plan: diflucan 200mg iv daily, nystatin swish and swallow qid, continue to monitor
[2018-08-02] MEDS: COLACE CAP 100 MG PO SCH (20:48)
[2018-08-02] MEDS: ELAVIL PO SCH (20:49)
[2018-08-02] MEDS: VALIUM PO SCH (20:50)
[2018-08-03] MEDS: SOLU-Medrol 40 MG VIAL IVP SCH ×3 (05:16→21:01)
[2018-08-03] MEDS: FORTAZ or TAZICEF VIAL INJ IVP SCH ×3 (05:16→21:01)
[2018-08-03 06:26] LABS: ABG BASE EXCESS 3.3 mmol/L (-2.0-2.0)
[2018-08-03 06:29] LABS: ABG HCO3 33.1 mmol/L (22-26)
[2018-08-03 06:45] LABS: BASOPHILS % (AUTO) 0.2 % (0.2-1.0); HEMOGLOBIN 12.5 g/dL (12.0-16.0); LYMPHOCYTES # (AUTO) 0.4 X10^3/uL (1.3-2.9); LYMPHOCYTES % (AUTO) 3.8 % (21.0-51.0); MEAN CORPUSCULAR HEMOGLOBIN 33.1 pg (27.0-34.0); MEAN CORPUSCULAR HGB CONC 33.6 g/dL (33.0-35.0); MEAN CORPUSCULAR VOLUME 98.4 fL (80.0-100.0); MEAN PLATELET VOLUME 6.7 fL (7.4-11.0); MONOCYTES # (AUTO) 0.2 x10^3/uL (0.3-0.8); MONOCYTES % (AUTO) 2.4 % (0.0-13.0); NEUTROPHILS # (AUTO) 8.7 x10^3/uL (2.2-4.8); NEUTROPHILS % (AUTO) 93.6 % (42.0-75.0); PLATELET COUNT 270 X10^3/uL (150.0-450.0); RED BLOOD COUNT 3.76 X10^6/uL (3.5-5.4); RED CELL DISTRIBUTION WIDTH 14.9 % (11.6-16.5); WHITE BLOOD COUNT 9.3 X10^3/uL (3.6-10.0)
[2018-08-03 06:51] LABS: ALANINE AMINOTRANSFERASE 28 Units/L (12-78); ALKALINE PHOSPHATASE 68 Units/L (46-116); ASPARTATE AMINO TRANSFERASE 28 Units/L (15-37); BLOOD UREA NITROGEN 13 mg/dL (7-18); CALCIUM 9.4 mg/dL (8.5-10.1); CARBON DIOXIDE 28.6 mmol/L (21-32); CHLORIDE 103 mmol/L (98-107); COR CA(FOR HYPOALB) 10.2 mg/dL (8.5-10.1); COR NA(FOR HYPERGLY) 139 mmol/L (136-145); CREATININE 0.59 mg/dL (0.55-1.02); SODIUM 138 mmol/L (136-145); TOTAL PROTEIN 6.5 g/dL (6.4-8.2); eGFR NON BLACK RACES > 60 (>60)
[2018-08-03 07:23] LABS: PLATELET MORPHOLOGY COMMENT NORMAL (NORMAL)
--- NOTE | 2018-08-03 07:27 | RAD ---
HISTORY: Shortness of breath Study: Chest AP portable Comparison: 08/02/2018 Findings: The patient is rotated to the left. The heart is upper limits normal in size. No congestive heart failure is noted. The wander are normal. Diffuse chronic appearing interstitial lung changes are stable. No acute alveolar infiltrates or pleural effusions are identified. The bony thorax is unremarkable. IMPRESSION: No significant change from the prior examination Reported By:
[2018-08-03] MEDS: PULMICORT NEB TX 0.5 MG NEB SCH ×2 (08:28→20:48)
[2018-08-03] MEDS: MUCOMYST 20% 200 MG/ML NEB SCH ×4 (08:28→20:48)
[2018-08-03] MEDS: DUONEB 0.5 MG/3 MG NEB SCH ×4 (08:28→20:48)
[2018-08-03] MEDS: LEVAQUIN PREMIX IV 500 MG 500 MG/100 ML BAG IV SCH (09:19)
[2018-08-03] MEDS: DIFLUCAN 200 MG IV PREMIX* 200 MG/100 ML BAG IV SCH (09:19)
[2018-08-03] MEDS: ROBITUSSIN DM PO PRN (09:20)
[2018-08-03] MEDS: COLACE CAP 100 MG PO SCH ×2 (09:20→20:23)
[2018-08-03] MEDS: NYSTATIN SUSP MT SCH ×4 (09:20→20:23)
[2018-08-03] MEDS: FOLIC ACID TAB 1 MG PO SCH (09:20)
[2018-08-03] MEDS: NS 1000 ML 1,000 ML IV SCH ×3 (09:20→20:23)
[2018-08-03] MEDS: ELIQUIS PO SCH ×2 (09:21→20:23)
[2018-08-03] MEDS: CARDIZEM SR 120 MG PO SCH (09:21)
[2018-08-03] MEDS: ZyrTEC TAB 10 MG PO PRN (09:21)
[2018-08-03] MEDS: ZANAFLEX PO SCH ×2 (09:32→20:23)
[2018-08-03 09:34] LABS: ABG BASE EXCESS 2.7 mmol/L (-2.0-2.0)
[2018-08-03 09:35] LABS: ABG HCO3 32.1 mmol/L (22-26)
[2018-08-03] MEDS: UNIPHYL TAB 400 MG PO SCH (12:09)
--- NOTE | 2018-08-03 20:06 | PCM.PROG ---
Progress Note - Progress Note for Day of Date of Exam: 08/03/18 - Subjective Subjective: WAS ADMITTED FOR PNEUMONIA, COPD EXACERBATION, AND RESPIRATORY FAILURE WITH HYPOXIA AND HYPERCAPNIA. TODAY, SHE SITTING UP IN BED ON MORNING ROUNDS. SHE REPORTS INCREASED SHORTNESS OF BREATH. ON AUSCULTATION, SHE CONTINUES WITH RHONCHI AND RALES. SHE IS TACHYCARDIC WITH HR NOTED TO BE 119. HER VITALS UPON ROUNDS ARE 97.6-89-20-94%BIPAP-149/70. LABS WERE OBTAINED. ABNORMAL LAB VALUES INCLUDE THE FOLLOWING: GLUCOSE 147, CRP 32.50, ALBUMIN 3.0. ABG WAS OBTAINED AND REVALED: PH 7.240, PC02 75.0, P02 70.0, HC03 32.1, BASE EXCESS 2.7. SPUTUM CULTURE REPORTS GROWTH OF YEAST AND S.PNEUMONIAE. SENSITIVITY TO FOLLOW. TODAYS CHEST XRAY REVEALED: No change when compared with the prior examination. TODAY, WE WILL CONTINUE WITH CURRENT PLAN OF CARE AND ADD THEOPHYLLINE. OTHERWISE, WE WILL CONTINUE WITH CURRENT PLAN OF CARE. WE PLAN TO FOLLOW UP WITH AM LABS AND CONTINUE TO MONITOR. - Past Medical Family Social History Past Med/Fam/Surg Hx: No changes since H&P Allergies: Allergies GRALISE Allergy (Uncoded 07/31/18 23:20) - Review of Systems ROS: No change since H&P - Vital Signs and I&O's Vital Signs: Temperature 98.5 F Pulse Rate [Left] 95 Pulse Rate 82 Respiratory Rate 20 Blood Pressure [Left Arm] 157/70 Blood Pressure [Right Arm] 140/76 Blood Pressure 107/56 O2 Sat by Pulse Oximetry 92 Intake and Output: Intake & Output 08/01/18 08/02/18 08/03/18 08/04/18 11:59 11:59 11:59 11:59 Intake Total 1225 / 1225 4031 / 4031 3236 / 3236 1349 / 1349 Output Total 500 / 500 1400 / 1400 1250 / 1250 1500 / 1500 Balance 725 / 725 2631 / 2631 1985 / 1985 -151 / -151 - Physical Exam Oriented: Normal Eyes: Normal Ear: Normal Nose: Normal Throat: Normal Respiratory: Right, Left, Generalized, Rales, Rhonchi Cardiovascular: Normal. negative: S3, S4, Murmur, Edema : Normal Auscultation: Bowel Sounds: Normal Palpation: Normal Tenderness: Normal Skin: Normal Musculoskeletal: Normal Psychiatric: Normal Mood Description: Calm Affect: Normal Speech Pattern: Clear, Appropriate - Laboratory and Diagnostics Result Diagrams: 08/03/18 05:44 08/03/18 05:44 Labs: 08/01/18 00:12 Blood Blood Culture - Preliminary 08/01/18 00:28 Sputum - Expectorated Sputum Sputum Culture - Preliminary 08/01/18 00:28 Sputum - Expectorated Sputum - Final 07/31/18 23:48 Blood Blood Culture - Preliminary Laboratory WBC 9.3 X10^3/uL (3.6-10.0) 08/03/18 05:44 RBC 3.76 X10^6/uL (3.5-5.4) 08/03/18 05:44 Hgb 12.5 g/dL (12.0-16.0) 08/03/18 05:44 Hct 37.0 % (36.0-47.0) 08/03/18 05:44 MCV 98.4 fL (80.0-100.0) 08/03/18 05:44 MCH 33.1 pg (27.0-34.0) 08/03/18 05:44 MCHC 33.6 g/dL (33.0-35.0) 08/03/18 05:44 RDW 14.9 % (11.6-16.5) 08/03/18 05:44 Plt Count 270 X10^3/uL (150.0-450.0) 08/03/18 05:44 Plt Count Comment Adequate (ADEQUATE) 08/03/18 05:44 MPV 6.7 fL (7.4-11.0) L 08/03/18 05:44 Neut % (Auto) 93.6 % (42.0-75.0) H 08/03/18 05:44 Lymph % (Auto) 3.8 % (21.0-51.0) L 08/03/18 05:44 Peach % (Auto) 2.4 % (0.0-13.0) 08/03/18 05:44 Eos % (Auto) 0.0 % (0.9-2.9) L 08/03/18 05:44 Baso % (Auto) 0.2 % (0.2-1.0) 08/03/18 05:44 Neut # (Auto) 8.7 x10^3/uL (2.2-4.8) H 08/03/18 05:44 Lymph # (Auto) 0.4 X10^3/uL (1.3-2.9) L 08/03/18 05:44 Peach # (Auto) 0.2 x10^3/uL (0.3-0.8) L 08/03/18 05:44 Eos # (Auto) 0.0 x10^3/uL (0.0-0.2) 08/03/18 05:44 Baso # (Auto) 0.0 X10^3/uL (0.0-0.1) 08/03/18 05:44 Absolute Nucleated RBC 0.1 /100WBC 08/03/18 05:44 Total Counted 100 08/03/18 05:44 Neutrophils % (Manual) 85 % (39-76) H 08/03/18 05:44 Band Neutrophils % 4 % (0-10) 08/02/18 05:16 Lymphocytes % (Manual) 10 % (13-43) L 08/03/18 05:44 Monocytes % (Manual) 3 % (4-9) L 08/03/18 05:44 Eosinophils % (Manual) 2 % (0-6) 08/03/18 05:44 Plt Morphology Comment Normal (NORMAL) 08/03/18 05:44 RBC Morphology Normal (NORMAL) 08/03/18 05:44 Sample Site Lb 08/03/18 09:29 ABG pH 7.240 (7.35-7.45) L 08/03/18 09:29 ABG pCO2 75.0 mmHg (35.0-45.0) H* 08/03/18 09:29 ABG pO2 70.0 mmHg (80.0-100.0) L 08/03/18 09:29 ABG HCO3 32.1 mmol/L (22-26) H* 08/03/18 09:29 ABG O2 Saturation 90.0 % (90-100) 08/03/18 09:29 ABG Base Excess 2.7 mmol/L (-2.0-2.0) H 08/03/18 09:29 Surinder Test Na 08/03/18 09:29 A-a Gradient 121.0 mmHg 08/03/18 09:29 FiO2 40.0 08/03/18 09:29 Blood Gas Comments Pt fito well llj 08/03/18 09:29 Sodium 138 mmol/L (136-145) 08/03/18 05:44 Corrected Sodium 139 mmol/L (136-145) 08/03/18 05:44 Potassium 4.2 mmol/L (3.5-5.1) 08/03/18 05:44 Chloride 103 mmol/L (98-107) 08/03/18 05:44 Carbon Dioxide 28.6 mmol/L (21-32) 08/03/18 05:44 BUN 13 mg/dL (7-18) 08/03/18 05:44 Creatinine 0.59 mg/dL (0.55-1.02) 08/03/18 05:44 Est GFR (MDRD) Af Amer > 60 (>60) 08/03/18 05:44 Est GFR (MDRD) Non-Af > 60 (>60) 08/03/18 05:44 Glucose 147 mg/dL (65-99) H 08/03/18 05:44 Lactic Acid 1.0 mmol/L (0.4-2.0) 07/31/18 22:41 Calcium 9.4 mg/dL (8.5-10.1) 08/03/18 05:44 Corrected Calcium 10.2 mg/dL (8.5-10.1) H 08/03/18 05:44 Total Bilirubin 0.20 mg/dL (0.2-1.0) 08/03/18 05:44 AST 28 Units/L (15-37) 08/03/18 05:44 ALT 28 Units/L (12-78) 08/03/18 05:44 Alkaline Phosphatase 68 Units/L (46-116) 08/03/18 05:44 Creatine Kinase 602 Units/L (26-192) H 08/01/18 10:52 CK-MB (CK-2) 10.8 ng/mL (0-4.0) H* 08/01/18 10:52 CK/CKMB % Calc 1.8 % (<4) 08/01/18 10:52 Troponin I 0.25 ng/mL (0-1.5) 08/01/18 10:52 C-Reactive Protein 32.50 mg/L (0-3.0) H 08/03/18 05:44 Total Protein 6.5 g/dL (6.4-8.2) 08/03/18 05:44 Albumin 3.0 g/dL (3.4-5.0) L 08/03/18 05:44 Globulin 3.5 g/dL (2.5-4.5) 08/03/18 05:44 Albumin/Globulin Ratio 0.9 Ratio (1.1-2.1) L 08/03/18 05:44 Triglycerides 125 mg/dL (0-150) 08/01/18 05:14 Cholesterol 150 mg/dL (0-200) 08/01/18 05:14 LDL Cholesterol, Calc 90 mg/dL (0-100) 08/01/18 05:14 HDL Cholesterol 35 mg/dL (40-60) L 08/01/18 05:14 Cholesterol/HDL Ratio 4.3 (0.0-5.0) 08/01/18 05:14 Specimen Type Clean catch urine 08/01/18 03:26 Urine Color Dark yellow (YELLOW) 08/01/18 03:26 Urine Appearance Clear (CLEAR) 08/01/18 03:26 Urine pH 5.0 (5.0 - 8.0) 08/01/18 03:26 Ur Specific [place] 1.015 (1.000-1.030) 08/01/18 03:26 Urine Protein 2+ (NEGATIVE) 08/01/18 03:26 Urine Glucose (UA) Negative (NEGATIVE) 08/01/18 03:26 Urine Ketones Negative (NEGATIVE) 08/01/18 03:26 Urine Occult Blood 1+ (NEGATIVE) 08/01/18 03:26 Urine Nitrite Negative (NEGATIVE) 08/01/18 03:26 Urine Bilirubin Negative (NEGATIVE) 08/01/18 03:26 Urine Urobilinogen Normal (NORMAL) 08/01/18 03:26 Ur Leukocyte Esterase Negative (NEGATIVE) 08/01/18 03:26 Urine RBC 5-10 /HPF (NONE SEEN) 08/01/18 03:26 Urine WBC 0-2 /HPF (NONE SEEN) 08/01/18 03:26 Ur Squamous Epith Cells Few /HPF (NEGATIVE) 08/01/18 03:26 Calcium Oxalate Crystal Few /HPF (NEGATIVE) 08/01/18 03:26 Amorphous Sediment 2+ /HPF (NEGATIVE) 08/01/18 03:26 Urine Bacteria Trace /HPF (NEGATIVE) 08/01/18 03:26 Hyaline Casts Many /LPF (NEGATIVE) 08/01/18 03:26 Ur Culture Indicated? No/not indicated 08/01/18 03:26 - Plan (1) Pneumonia Status: Acute Qualifiers: Pneumonia type: due to unspecified organism Laterality: left Lung location: lower lobe of lung Qualified Code(s): J18.1 - Lobar pneumonia, unsp ecified organism Plan: ADMIT, PNEUMONIA PROTOCOL, IV FORTAZ, IV LEVAQUIN, RESPIRATORY TREATMENTS, MUCOMYST AND DECADRON IN NEB TX, BIPAP, SUPPLEMENTAL OXYGEN, CONTINUE TO M ONITOR. (2) COPD (chronic obstructive pulmonary disease) Status: Acute Qualifiers: COPD type: COPD with acute lower respiratory infection Qualified Code(s): J44.0 - Chronic obstructive pulmonary disease with acute lower respiratory infection Plan: BIPAP, NEB TX, SUPPLEMENTAL OXYGEN, THEOPHYLLINE, CONTINUE TO MONITOR (3) Respiratory failure with hypoxia and hypercapnia Status: Acute Qualifiers: Chronicity: acute on chronic Qualified Code(s): J96.21 - Acute and chronic respiratory failure with hypoxia; J96.22 - Acute and chronic respiratory failure with hypercapnia (4) Infection due to yeast Status: Acute Plan: diflucan 200mg iv daily, nystatin swish and swallow qid, continue to monitor
[2018-08-03] MEDS: VALIUM PO SCH (20:23)
[2018-08-03] MEDS: ELAVIL PO SCH (20:23)
[2018-08-03] MEDS: PERCOCET TAB 5/325 MG PO PRN (21:00)
[2018-08-04] MEDS: FORTAZ or TAZICEF VIAL INJ IVP SCH (05:19)
[2018-08-04] MEDS: SOLU-Medrol 40 MG VIAL IVP SCH ×3 (05:20→21:18)
[2018-08-04] MEDS: PERCOCET TAB 5/325 MG PO PRN ×2 (05:21→16:47)
[2018-08-04] MEDS: ROXICODONE TAB 5 MG PO PRN ×2 (05:22→16:49)
[2018-08-04 06:27] LABS: ABG BASE EXCESS 7.2 mmol/L (-2.0-2.0)
[2018-08-04 06:32] LABS: ABG HCO3 35.3 mmol/L (22-26)
[2018-08-04 06:36] LABS: BASOPHILS % (AUTO) 0.2 % (0.2-1.0); HEMOGLOBIN 12.9 g/dL (12.0-16.0); LYMPHOCYTES # (AUTO) 0.9 X10^3/uL (1.3-2.9); MEAN CORPUSCULAR HEMOGLOBIN 33.1 pg (27.0-34.0); MEAN CORPUSCULAR HGB CONC 33.8 g/dL (33.0-35.0); MEAN CORPUSCULAR VOLUME 97.9 fL (80.0-100.0); MEAN PLATELET VOLUME 6.4 fL (7.4-11.0); MONOCYTES # (AUTO) 0.3 x10^3/uL (0.3-0.8); MONOCYTES % (AUTO) 4.1 % (0.0-13.0); NEUTROPHILS # (AUTO) 6.3 x10^3/uL (2.2-4.8); NEUTROPHILS % (AUTO) 83.7 % (42.0-75.0); PLATELET COUNT 285 X10^3/uL (150.0-450.0); RED BLOOD COUNT 3.88 X10^6/uL (3.5-5.4); WHITE BLOOD COUNT 7.5 X10^3/uL (3.6-10.0)
[2018-08-04 06:55] LABS: ALANINE AMINOTRANSFERASE 27 Units/L (12-78); ALBUMIN 2.7 g/dL (3.4-5.0); ALKALINE PHOSPHATASE 61 Units/L (46-116); ASPARTATE AMINO TRANSFERASE 35 Units/L (15-37); BLOOD UREA NITROGEN 14 mg/dL (7-18); CALCIUM 8.8 mg/dL (8.5-10.1); CARBON DIOXIDE 27.3 mmol/L (21-32); CHLORIDE 101 mmol/L (98-107); COR CA(FOR HYPOALB) 9.8 mg/dL (8.5-10.1); COR NA(FOR HYPERGLY) 141 mmol/L (136-145); CREATININE 0.71 mg/dL (0.55-1.02); SODIUM 138 mmol/L (136-145); TOTAL PROTEIN 6.2 g/dL (6.4-8.2); eGFR NON BLACK RACES > 60 (>60)
--- NOTE | 2018-08-04 07:12 | RAD ---
HISTORY: Shortness of breath Study: Chest AP portable Comparison: 08/03/2018 Findings: The heart is within normal limits in size. The wander are normal. The lungs are free of acute alveolar infiltrates. Diffuse chronic interstitial lung changes are stable when compared with the prior examination. No pleural effusions are identified. The bony thorax is unremarkable. There is a spinal cord stimulator at the mid thoracic level. IMPRESSION: Diffuse chronic appearing interstitial lung changes stable when compared with the prior examination Reported By:
[2018-08-04 07:38] LABS: ABG BASE EXCESS 7.6 mmol/L (-2.0-2.0)
[2018-08-04 07:39] LABS: ABG HCO3 35.3 mmol/L (22-26)
[2018-08-04] MEDS: CARDIZEM SR 120 MG PO SCH (08:18)
[2018-08-04] MEDS: DIFLUCAN 200 MG IV PREMIX* 200 MG/100 ML BAG IV SCH (08:19)
[2018-08-04] MEDS: ELIQUIS PO SCH ×2 (08:19→21:18)
[2018-08-04] MEDS: COLACE CAP 100 MG PO SCH ×2 (08:19→21:17)
[2018-08-04] MEDS: NS 1000 ML 1,000 ML IV SCH ×2 (08:20→21:19)
[2018-08-04] MEDS: ZANAFLEX PO SCH ×2 (08:20→21:18)
[2018-08-04] MEDS: NYSTATIN SUSP MT SCH ×4 (08:20→21:18)
[2018-08-04] MEDS: LEVAQUIN PREMIX IV 500 MG 500 MG/100 ML BAG IV SCH (08:20)
[2018-08-04] MEDS: FOLIC ACID TAB 1 MG PO SCH (08:20)
[2018-08-04] MEDS: UNIPHYL TAB 400 MG PO SCH (08:20)
[2018-08-04] MEDS: DUONEB 0.5 MG/3 MG NEB SCH ×4 (08:56→20:15)
[2018-08-04] MEDS: PULMICORT NEB TX 0.5 MG NEB SCH ×2 (08:56→20:15)
[2018-08-04] MEDS: MUCOMYST 20% 200 MG/ML NEB SCH ×4 (08:56→20:15)
[2018-08-04] MEDS ORDERED: MAXIPIME 1 GM IV SCH (10:15)
[2018-08-04] MEDS: TUSSIONEX PENNKINETIC SUSP PO PRN (14:18)
[2018-08-04] MEDS ORDERED: MICRO K EXTEN CAP 10 MEQ PO PRN (19:17)
[2018-08-04] MEDS ORDERED: POTASSIUM CHL 60 MEQ/NS 0.45% 500 ML IV PRN (19:17)
[2018-08-04] MEDS ORDERED: POTASSIUM CHL 40 MEQ/NS 0.45% 500 ML IV PRN (19:17)
[2018-08-04] MEDS ORDERED: POTASSIUM CHLORIDE LIQ 20 MEQ UDC PO PRN (19:17)
[2018-08-04] MEDS ORDERED: KLOR-CON PO PRN (19:17)
[2018-08-04] MEDS: K-DUR TAB 20 MEQ PO PRN (21:17)
[2018-08-04] MEDS: ELAVIL PO SCH (21:17)
[2018-08-04] MEDS: VALIUM PO SCH (21:18)
[2018-08-04] MEDS: MAXIPIME 1 GM IV SCH (21:19)
[2018-08-04] MEDS: MAGNESIUM SULFATE 1 GRAM/100 mL PREMIX 1 GM/100 ML BAG IV PRN ×2 (22:25→23:31)
[2018-08-05] MEDS: ROBITUSSIN DM PO PRN ×2 (00:22→14:45)
[2018-08-05] MEDS: SOLU-Medrol 40 MG VIAL IVP SCH ×2 (05:05→13:35)
[2018-08-05] MEDS: TUSSIONEX PENNKINETIC SUSP PO PRN ×2 (05:12→22:35)
--- NOTE | 2018-08-05 06:06 | RAD ---
HISTORY: Shortness of breath Study: Chest AP portable Comparison: 08/04/2018 Findings: The heart is within normal limits in size. The wander are normal. The lungs are free of acute alveolar infiltrates. Diffuse chronic interstitial lung changes are stable. No pleural effusions are identified. The bony thorax is unremarkable. There is a spinal cord stimulator at the mid thoracic level. IMPRESSION: Diffuse chronic interstitial lung changes not significantly different from the prior examination Reported By:
[2018-08-05 06:07] LABS: BASOPHILS # (AUTO) 0.1 X10^3/uL (0.0-0.1); BASOPHILS % (AUTO) 0.6 % (0.2-1.0); HEMATOCRIT 41.7 % (36.0-47.0); HEMOGLOBIN 14.4 g/dL (12.0-16.0); LYMPHOCYTES % (AUTO) 10.1 % (21.0-51.0); MEAN CORPUSCULAR HEMOGLOBIN 33.2 pg (27.0-34.0); MEAN CORPUSCULAR HGB CONC 34.6 g/dL (33.0-35.0); MEAN CORPUSCULAR VOLUME 95.9 fL (80.0-100.0); MEAN PLATELET VOLUME 6.5 fL (7.4-11.0); MONOCYTES # (AUTO) 0.5 x10^3/uL (0.3-0.8); MONOCYTES % (AUTO) 5.4 % (0.0-13.0); NEUTROPHILS # (AUTO) 8.3 x10^3/uL (2.2-4.8); NEUTROPHILS % (AUTO) 83.9 % (42.0-75.0); PLATELET COUNT 316 X10^3/uL (150.0-450.0); RED BLOOD COUNT 4.35 X10^6/uL (3.5-5.4); RED CELL DISTRIBUTION WIDTH 14.8 % (11.6-16.5); WHITE BLOOD COUNT 9.9 X10^3/uL (3.6-10.0)
[2018-08-05 06:11] LABS: ABG BASE EXCESS 13.3 mmol/L (-2.0-2.0)
[2018-08-05 06:12] LABS: ABG HCO3 40.9 mmol/L (22-26)
[2018-08-05 06:23] LABS: ALANINE AMINOTRANSFERASE 30 Units/L (12-78); ALKALINE PHOSPHATASE 64 Units/L (46-116); ASPARTATE AMINO TRANSFERASE 22 Units/L (15-37); BLOOD UREA NITROGEN 16 mg/dL (7-18); CARBON DIOXIDE 34.6 mmol/L (21-32); CHLORIDE 99 mmol/L (98-107); COR CA(FOR HYPOALB) 9.8 mg/dL (8.5-10.1); COR NA(FOR HYPERGLY) 141 mmol/L (136-145); CREATININE 0.65 mg/dL (0.55-1.02); SODIUM 141 mmol/L (136-145); TOTAL PROTEIN 6.7 g/dL (6.4-8.2); eGFR NON BLACK RACES > 60 (>60)
[2018-08-05 06:45] LABS: BAND NEUTROPHILS % 4 % (0-10); PLATELET MORPHOLOGY COMMENT NORMAL (NORMAL)
[2018-08-05] MEDS: PULMICORT NEB TX 0.5 MG NEB SCH ×2 (08:30→20:12)
[2018-08-05] MEDS: DUONEB 0.5 MG/3 MG NEB SCH ×4 (08:30→20:12)
[2018-08-05] MEDS: ELIQUIS PO SCH ×2 (08:40→20:46)
[2018-08-05] MEDS: CARDIZEM SR 120 MG PO SCH (08:40)
[2018-08-05] MEDS: NYSTATIN SUSP MT SCH ×4 (08:41→20:47)
[2018-08-05] MEDS: COLACE CAP 100 MG PO SCH ×2 (08:41→20:46)
[2018-08-05] MEDS: UNIPHYL TAB 400 MG PO SCH (08:41)
[2018-08-05] MEDS: FOLIC ACID TAB 1 MG PO SCH (08:41)
[2018-08-05] MEDS: ZANAFLEX PO SCH ×2 (08:42→20:46)
[2018-08-05] MEDS: ROXICODONE TAB 5 MG PO PRN ×3 (08:42→22:34)
[2018-08-05] MEDS: K-DUR TAB 20 MEQ PO PRN ×2 (08:43→21:44)
[2018-08-05] MEDS: DIFLUCAN 200 MG IV PREMIX* 200 MG/100 ML BAG IV SCH (08:44)
[2018-08-05] MEDS: PERCOCET TAB 5/325 MG PO PRN ×3 (08:44→22:33)
[2018-08-05] MEDS: LEVAQUIN PREMIX IV 500 MG 500 MG/100 ML BAG IV SCH (08:45)
[2018-08-05] MEDS: MAXIPIME 1 GM IV SCH ×2 (08:45→20:45)
[2018-08-05] MEDS: NS 1000 ML 1,000 ML IV SCH ×2 (16:12→16:13)
[2018-08-05] MEDS: ELAVIL PO SCH (20:46)
[2018-08-05] MEDS: THEO-DUR TAB 300 MG PO SCH (20:46)
[2018-08-05] MEDS: VALIUM PO SCH (20:46)
[2018-08-06 05:26] LABS: BASOPHILS % (AUTO) 0.1 % (0.2-1.0); HEMATOCRIT 38.8 % (36.0-47.0); HEMOGLOBIN 13.3 g/dL (12.0-16.0); LYMPHOCYTES # (AUTO) 1.4 X10^3/uL (1.3-2.9); LYMPHOCYTES % (AUTO) 14.7 % (21.0-51.0); MEAN CORPUSCULAR HEMOGLOBIN 33.3 pg (27.0-34.0); MEAN CORPUSCULAR HGB CONC 34.3 g/dL (33.0-35.0); MEAN PLATELET VOLUME 6.1 fL (7.4-11.0); MONOCYTES # (AUTO) 0.7 x10^3/uL (0.3-0.8); MONOCYTES % (AUTO) 6.8 % (0.0-13.0); NEUTROPHILS # (AUTO) 7.7 x10^3/uL (2.2-4.8); NEUTROPHILS % (AUTO) 78.4 % (42.0-75.0); PLATELET COUNT 333 X10^3/uL (150.0-450.0); RED CELL DISTRIBUTION WIDTH 14.6 % (11.6-16.5); WHITE BLOOD COUNT 9.8 X10^3/uL (3.6-10.0)
[2018-08-06 05:38] LABS: ALANINE AMINOTRANSFERASE 38 Units/L (12-78); ALBUMIN 2.6 g/dL (3.4-5.0); ALKALINE PHOSPHATASE 57 Units/L (46-116); ASPARTATE AMINO TRANSFERASE 21 Units/L (15-37); BLOOD UREA NITROGEN 15 mg/dL (7-18); CALCIUM 8.4 mg/dL (8.5-10.1); CARBON DIOXIDE 38.6 mmol/L (21-32); CHLORIDE 99 mmol/L (98-107); COR CA(FOR HYPOALB) 9.5 mg/dL (8.5-10.1); COR NA(FOR HYPERGLY) 142 mmol/L (136-145); SODIUM 140 mmol/L (136-145); TOTAL PROTEIN 5.8 g/dL (6.4-8.2); eGFR NON BLACK RACES > 60 (>60)
[2018-08-06] MEDS: K-RIDER 10 MEQ/NS 100 ML 10 MEQ/100 ML BAG IV PRN ×6 (06:02→11:38)
[2018-08-06] MEDS: NS 1000 ML 1,000 ML IV SCH (06:03)
[2018-08-06] MEDS: ROXICODONE TAB 5 MG PO PRN ×3 (06:09→21:35)
[2018-08-06] MEDS: PERCOCET TAB 5/325 MG PO PRN ×3 (06:09→21:34)
[2018-08-06 07:23] LABS: ABG BASE EXCESS 18.5 mmol/L (-2.0-2.0)
[2018-08-06 07:24] LABS: ABG HCO3 46.2 mmol/L (22-26)
[2018-08-06] MEDS: PULMICORT NEB TX 0.5 MG NEB SCH ×2 (09:08→20:09)
[2018-08-06] MEDS: DUONEB 0.5 MG/3 MG NEB SCH ×4 (09:08→20:09)
[2018-08-06] MEDS: DIFLUCAN 200 MG IV PREMIX* 200 MG/100 ML BAG IV SCH (09:30)
[2018-08-06] MEDS: CARDIZEM SR 120 MG PO SCH (09:30)
[2018-08-06] MEDS: NYSTATIN SUSP MT SCH ×4 (09:30→20:59)
[2018-08-06] MEDS: ZANAFLEX PO SCH ×2 (09:30→20:59)
[2018-08-06] MEDS: ELIQUIS PO SCH ×2 (09:30→20:59)
[2018-08-06] MEDS: COLACE CAP 100 MG PO SCH ×2 (09:30→20:59)
[2018-08-06] MEDS: THEO-DUR TAB 300 MG PO SCH ×2 (09:30→21:00)
[2018-08-06] MEDS: LEVAQUIN PREMIX IV 500 MG 500 MG/100 ML BAG IV SCH (09:45)
[2018-08-06] MEDS: MILK OF MAGNESIA PO SCH ×2 (10:34→21:03)
[2018-08-06] MEDS: FOLIC ACID TAB 1 MG PO SCH (10:34)
[2018-08-06] MEDS: MAXIPIME 1 GM IV SCH ×2 (10:34→21:00)
[2018-08-06] MEDS: TUSSIONEX PENNKINETIC SUSP PO PRN (15:38)
[2018-08-06] MEDS: K-DUR TAB 20 MEQ PO PRN (20:58)
[2018-08-06] MEDS: ELAVIL PO SCH (20:59)
[2018-08-06] MEDS: VALIUM PO SCH (21:00)
[2018-08-07 05:05] LABS: ABG BASE EXCESS 17.4 mmol/L (-2.0-2.0)
[2018-08-07 05:06] LABS: ABG HCO3 44.8 mmol/L (22-26)
[2018-08-07] MEDS: ROXICODONE TAB 5 MG PO PRN ×3 (05:39→14:15)
[2018-08-07] MEDS: PERCOCET TAB 5/325 MG PO PRN ×3 (05:39→14:15)
--- NOTE | 2018-08-07 05:43 | RAD ---
Chest, one view Indication: Pneumonia Comparison: 08/05/2018 Findings: The heart is normal in size. Lower lobe predominant chronic interstitial lung changes are stable since prior exam. No definite acute infiltrate is identified. There is no significant pleural effusion or pneumothorax. Impression: Stable chronic interstitial lung changes without acute chest process or significant interval change. Reported By:
[2018-08-07 06:39] LABS: ALANINE AMINOTRANSFERASE 36 Units/L (12-78); ALBUMIN 2.7 g/dL (3.4-5.0); ALKALINE PHOSPHATASE 55 Units/L (46-116); ASPARTATE AMINO TRANSFERASE 21 Units/L (15-37); BLOOD UREA NITROGEN 16 mg/dL (7-18); CALCIUM 8.7 mg/dL (8.5-10.1); CHLORIDE 99 mmol/L (98-107); COR CA(FOR HYPOALB) 9.7 mg/dL (8.5-10.1); CREATININE 0.75 mg/dL (0.55-1.02); MAGNESIUM 1.8 mg/dL (1.7-2.9); SODIUM 139 mmol/L (136-145); TOTAL PROTEIN 5.8 g/dL (6.4-8.2); eGFR NON BLACK RACES > 60 (>60)
[2018-08-07 06:41] LABS: BASOPHILS % (AUTO) 0.2 % (0.2-1.0); EOSINOPHILS % (AUTO) 0.4 % (0.9-2.9); HEMATOCRIT 39.7 % (36.0-47.0); HEMOGLOBIN 13.3 g/dL (12.0-16.0); MEAN CORPUSCULAR HEMOGLOBIN 32.9 pg (27.0-34.0); MEAN CORPUSCULAR HGB CONC 33.5 g/dL (33.0-35.0); MEAN CORPUSCULAR VOLUME 98.3 fL (80.0-100.0); MEAN PLATELET VOLUME 6.2 fL (7.4-11.0); MONOCYTES # (AUTO) 0.5 x10^3/uL (0.3-0.8); MONOCYTES % (AUTO) 6.3 % (0.0-13.0); NEUTROPHILS # (AUTO) 4.4 x10^3/uL (2.2-4.8); NEUTROPHILS % (AUTO) 55.1 % (42.0-75.0); PLATELET COUNT 329 X10^3/uL (150.0-450.0); RED BLOOD COUNT 4.04 X10^6/uL (3.5-5.4); RED CELL DISTRIBUTION WIDTH 14.8 % (11.6-16.5); WHITE BLOOD COUNT 7.9 X10^3/uL (3.6-10.0)
[2018-08-07] MEDS: TUSSIONEX PENNKINETIC SUSP PO PRN (08:26)
[2018-08-07] MEDS: PULMICORT NEB TX 0.5 MG NEB SCH (09:01)
[2018-08-07] MEDS: DUONEB 0.5 MG/3 MG NEB SCH ×2 (09:01→12:30)
[2018-08-07] MEDS: THEO-DUR TAB 300 MG PO SCH (09:32)
[2018-08-07] MEDS: NYSTATIN SUSP MT SCH ×2 (09:33→14:50)
[2018-08-07] MEDS: COLACE CAP 100 MG PO SCH (09:33)
[2018-08-07] MEDS: MAXIPIME 1 GM IV SCH (09:33)
[2018-08-07] MEDS: CARDIZEM SR 120 MG PO SCH (09:33)
[2018-08-07] MEDS: ELIQUIS PO SCH (09:33)
[2018-08-07] MEDS: LEVAQUIN PREMIX IV 500 MG 500 MG/100 ML BAG IV SCH (09:35)
[2018-08-07] MEDS: K-DUR TAB 20 MEQ PO PRN (09:35)
[2018-08-07] MEDS: DIFLUCAN 200 MG IV PREMIX* 200 MG/100 ML BAG IV SCH (09:35)
[2018-08-07] MEDS: MILK OF MAGNESIA PO SCH (09:36)
[2018-08-07] MEDS: ZANAFLEX PO SCH (09:36)
[2018-08-07] MEDS: FOLIC ACID TAB 1 MG PO SCH (09:36)
[2018-08-07 10:45] LABS: ABG BASE EXCESS 18.5 mmol/L (-2.0-2.0)
[2018-08-07 10:46] LABS: ABG HCO3 45.9 mmol/L (22-26)
[2018-08-07] MEDS ORDERED: ADENOCARD INJ 6 MG ONE ×3 (14:17→15:11)
[2018-08-07] MEDS: ADENOCARD INJ 6 MG IVP ONE ×2 (14:28→14:39)
[2018-08-07 14:42] VITALS: BP 117/63
[2018-08-07] MEDS ORDERED: NEXTERONE IV 150 MG PREMIX* 150 MG/100 ML BAG IV ONE ×2 (15:24→15:40)
[2018-08-07] MEDS ORDERED: NEXTERONE IV 360 MG PREMIX* 360 MG/200 ML BAG IV PRN (15:25)
[2018-08-07] MEDS ORDERED: ADENOCARD INJ 6 MG IVP ONE (15:26)
[2018-08-07] MEDS ORDERED: NEXTERONE IV 360 MG PREMIX* 360 MG/200 ML BAG IV ONE (15:39)
== END 2018-08-07 16:10 | disposition short-term general hospital (02) | DRG 193 ==
LOC: EDSEX 22:25 → ER 22:25 → ICU 08-01 02:34
PROVIDERS: ADMIT Internal Medicine; ATTEND Internal Medicine
DX: R94.39 Abnormal result of other cardiovascular function study; Z99.81 Dependence on supplemental oxygen; B37.9 Candidiasis, unspecified; M19.90 Unspecified osteoarthritis, unspecified site; I10 Essential (primary) hypertension; J13 Pneumonia due to Streptococcus pneumoniae; J44.9 Chronic obstructive pulmonary disease, unspecified; J96.22 Acute and chronic respiratory failure with hypercapnia; J96.21 Acute and chronic respiratory failure with hypoxia; R07.89 Other chest pain
CPT/HCPCS: 36415; 36600; 71010; 71045; 71275; 80053; 80061; 81001; 82550; 82553; 82803; 83605; 83735; 84132; 84484; 85025; 86140; 87040; 87070; 87077; 87186; 87205; 93005; 94640; 94660; 94669; 96365; 96374; 96375; 99231; 99238; 99284; 99285; A4222; A4618; A7030; J0153; J0282; J0692; J0696; J0713; J1450; J1956; J2920; J2930; J3475; J3480; J7030; J7620; J7626